=== PATIENT | male | born 1990 | race Caucasian/White ===

== ENCOUNTER 2019-11-04 15:20 | Emergency (ER) | payer OTHER ==
[~2019-11-04] VITALS: Ht 175.3 cm; Wt 93.0 kg
--- NOTE | 2019-11-04 15:36 | NUR ---
Attempted to triage pt multiple times, pt has been in the restroom.
[2019-11-04] MEDS ORDERED: HYDROCODONE/APAP 10-325 MG TABLET ONE (16:09)
[2019-11-04] MEDS ORDERED: NEOMY/BACITRA/POLYMYXIN B OINT UD PACKET TP ONE ×2 (16:10→16:15)
[2019-11-04] MEDS ORDERED: HYDROCODONE/APAP 10-325 MG TABLET PO ONE (16:15)
--- NOTE | 2019-11-04 17:57 | NUR ---
pt was d/c'D to home. d/c instructions given to the pt by dr Sepulveda.
[2019-11-04 17:59] VITALS: BP 131/72
== END 2019-11-04 18:03 | disposition home or self-care (01) ==
LOC: ER 15:23
DX: L03.011 Cellulitis of right finger (principal); S60.414A Abrasion of right ring finger, initial encounter; W45.8XXA Other foreign body or object entering through skin, initial encounter; Y92.099 Unspecified place in other non-institutional residence as the place of occurrence of the external cause
CPT/HCPCS: A4663